=== PATIENT | female | born 1975 | race Caucasian/White ===

== ENCOUNTER 2017-05-14 06:56 | Day surgery (SDC) | payer MEDICAID ==
[~2017-05-14 06:56] MED LIST: Lidocaine 1%/Sod Bicarbonate in NS 8.4% 1 ML Syringe PRN; Sodium Chloride 0.9% 10 ML Syringe FLUSH PRN
[2017-05-14] MEDS: Lactated Ringers 1,000 ML IV SCH ×2 (07:17→14:04)
[2017-05-14] MEDS ORDERED: Bupivacaine 0.5% 30 ML SDV ONE (07:21)
[2017-05-14] MEDS ORDERED: HYDROmorphone 1 MG/ML Syringe ONE (07:28)
[2017-05-14] MEDS ORDERED: Ketamine 500 mg/10 ML MDV ONE (07:29)
[2017-05-14] MEDS ORDERED: Midazolam 1 MG/ML 2 ML SDV ONE (07:29)
[2017-05-14] MEDS ORDERED: Propofol 200 MG/20 ML SDV ONE (07:29)
[2017-05-14] MEDS ORDERED: fentaNYL 250 MCG/5 ML SDV ONE (07:29)
[2017-05-14] MEDS ORDERED: Rocuronium 50 MG/5 ML Vial ONE ×2 (07:31→11:05)
[2017-05-14] MEDS ORDERED: Dexamethasone 4 MG/ML SDV ONE (07:31)
[2017-05-14] MEDS ORDERED: Ondansetron 4 MG/2 ML SDV ONE (07:31)
[2017-05-14] MEDS ORDERED: Lidocaine 1% 4 ML ONE (07:31)
--- NOTE | 2017-05-14 07:35 | PCM.PREANE ---
Preanesthetic Assessment - Procedure Proposed Procedure: [facility] - Anesthesia/Transfusion/Family Hx Anesthesia History: Prior Anesthesia Without Reaction Family History of Anesthesia Reaction: No Transfusion History: Prior Transfusion Without Reaction Intubation History: Unknown - Review of Systems General: No Symptoms Pulmonary: Other (JOELLEN with cpap ) Cardiovascular: No Symptoms Gastrointestinal: No Symptoms Neurological: No Symptoms Other: Reports: None, Depression, Anxiety - Physical Assessment NPO Status Date: 05/13/17 NPO Status Time: 22:00 O2 Sat by Pulse Oximetry: 96 Respiratory Rate: 16 Vital Signs: Last Vital Signs Temp 36.3 C 05/14/17 07:05 Pulse 83 05/14/17 07:05 Resp 16 05/14/17 07:05 BP 129/84 05/14/17 07:05 Pulse Ox 96 05/14/17 07:05 Height: 1.73 m Weight: 109.316 kg ASA Class: 2 Mental Status: Alert & Oriented x3 Airway Class: Mallampati = 1 Dentition: Reports: Normal Dentition Thyro-Mental Finger Breadths: 3 Mouth Opening Finger Breadths: 3 ROM/Head Extension: Full Lungs: Clear to Auscultation, Normal Respiratory Effort Cardiovascular: Regular Rate, Regular Rhythm - Lab Values: Laboratory Last Values Urine HCG, Qual Negative (NEGATIVE) 05/14/17 07:01 - Allergies Allergies/Adverse Reactions: Allergies Allergy/AdvReac Type Severity Reaction Status Date / Time No Known Allergies Allergy Verified 05/13/17 16:33 - Blood Blood Available: No Product(s) Available: None - Anesthesia Plan Pre-Op Medication Ordered: None - Acknowledgements Anesthesia Type Planned: General Anesthesia Pt an Appropriate Candidate for the Planned Anesthesia: Yes Alternatives and Risks of Anesthesia Discussed w Pt/Guardian: Yes Pt/Guardian Understands and Agrees with Anesthesia Plan: Yes PreAnesthesia Questionnaire HEENT History: Reports: Impaired Vision Cardiovascular History: Reports: None Respiratory History: Reports: Sleep Apnea, SOB Gastrointestinal History: Reports: None Genitourinary History: Reports: None ELECTRICIAN SUBSTATION History: Reports: , Other (See Below) Other OB/BYN History: dysmenorrhea, heavy menses Musculoskeletal History: Reports: None Neurological History: Reports: None Psychiatric History: Reports: Anxiety Endocrine/Metabolic History: Reports: None Hematologic History: Reports: Other (See Below) Other Hematologic History: hemachromatosis Immunologic History: Reports: None Oncologic (Cancer) History: Reports: None Dermatologic History: Reports: None - Past Surgical History Head Surgeries/Procedures: Reports: None HEENT Surgical History: Reports: Oral Surgery Cardiovascular Surgical History: Reports: None Respiratory Surgical History: Reports: None GI Surgical History: Reports: None Female Surgical History: Reports: D&C Endocrine Surgical History: Reports: None Neurological Surgical History: Reports: None Musculoskeletal Surgical History: Reports: None Oncologic Surgical History: Reports: None Dermatological Surgical History: Reports: None - SUBSTANCE USE Smoking Status *Q: Former Smoker (19 years, quit 9 years ago) Second Hand Smoke Exposure: No Recreational Drug Use History: No - HOME MEDS Home Medications: Home Meds PARoxetine HCl [Paroxetine HCl] 30 mg PO DAILY 05/13/17 [History] - CURRENT (IN HOUSE) MEDS Current Meds: Current Medications Lactated Ringer's (Ringers, Lactated) 1,000 mls @ 125 mls/hr IV ASDIRECTED CIPRIANO Stop: 05/14/17 23:00 Last Admin: 05/14/17 07:17 Dose: 125 mls/hr Lidocaine/Sodium Bicarbonate (Buffered Lidocaine 1% In Ns 8.4%) 0.25 ml .XX ONETIME PRN PRN Reason: Prior to IV Start Stop: 05/14/17 18:00 Last Admin: 05/14/17 07:17 Dose: 0.25 ml Sodium Chloride (Saline Flush) 10 ml FLUSH ASDIRECTED PRN PRN Reason: Keep Vein Open Stop: 05/14/17 18:00 Discontinued Medications Dexamethasone (Dexamethasone) Confirm Administered Dose 4 mg .ROUTE .STK-MED ONE Stop: 05/14/17 07:32 Fentanyl (Sublimaze) Confirm Administered Dose 250 mcg .ROUTE .STK-MED ONE Stop: 05/14/17 07:30 Hydromorphone HCl (Dilaudid) Confirm Administered Dose 1 mg .ROUTE .STK-MED ONE Stop: 05/14/17 07:29 Lidocaine HCl (Xylocaine-Mpf 1%) Confirm Administered Dose 4 mls @ as directed .ROUTE .STK-MED ONE Stop: 05/14/17 07:32 Ketamine HCl (Ketalar) Confirm Administered Dose 500 mg .ROUTE .STK-MED ONE Stop: 05/14/17 07:30 Midazolam HCl (Versed 1 Mg/Ml) Confirm Administered Dose 2 mg .ROUTE .STK-MED ONE Stop: 05/14/17 07:30 Ondansetron HCl (Zofran) Confirm Administered Dose 4 mg .ROUTE .STK-MED ONE Stop: 05/14/17 07:32 Propofol (Diprivan 20 Ml) Confirm Administered Dose 200 mg .ROUTE .STK-MED ONE Stop: 05/14/17 07:30 Rocuronium [place] (Zemuron) Confirm Administered Dose 50 mg .ROUTE .STK-MED ONE Stop: 05/14/17 07:32
--- NOTE | 2017-05-14 07:38 | PCM.OPNOTE ---
- General Post-Op/Procedure Note Date of Surgery/Procedure: 05/14/17 Operative Procedure(s): Laparoscopic assisted vaginal hysterectomy. Bilateral salpingectomy Findings: Normal, but bulky appearance to the uterus. Fibroid noted to be filling left uterine cornua. Normal appearance of the ovaries and fallopian tubes. Pre Op Diagnosis: Abnormal uterine bleeding. 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 The patient was taken to the Operating Room where general anesthesia was induced without complication. The patient was placed in dorsal lithotomy with Padilla Stirrups and an exam under anesthesia revealed the findings detailed above. The patient was then prepped and draped in the usual sterile fashion. A sterile bivalve speculum was placed into the vagina and the anterior lip of the cervix was grasped with a single tooth tenaculum and the cervix was dilated to a #8 hegar dilator. A Alysa uterine manipulator was placed to allow uterine manipulation throughout the procedure. The speculum was removed from the vagina. A Bueno catheter was placed in sterile fashion. Attention was then turned to the patients abdomen where a Veress needle was carefully introduced into the peritoneal cavity while tenting the abdominal wall. Insufflation started but high opening pressure noted. Veress removed and 2 additional attempts at placement done with similar results. Veress needle then abandoned. A 5 mm skin incision was made in a vertical fashion in the umbilical fold and a 5 mm blunt trocar was inserted into the abdomen with direct visualization of the laparoscope through the clear view trocar lens. Once intraabdominal placement confirmed pneumoperitoenum was established with a pressure of 15 mm Hg. 5 mm skin incisions were made in both the left and right lower quadrants approximately 10 cm lateral and 3 cm inferior to the umbilicus. 5 mm blunt trocars were inserted into the abdomen under direct visualization with care to avoid the abdominal wall vasculature. A blunt probe and grasper were inserted through the accessory ports and a survey of the abdomen revealed the findings detailed above. The right fallopian tube was elevated with the blunt graspers at the fimbriated end. The Ligasure was used to grasp, elevate, cauterize and transect the mesosapingx from the fimbriated end toward the uterus to the level of the round ligament. The round ligament on the right was then elevated, cauterized, and transected with the Ligasure. Hemostasis was noted. Next, the vesicouterine peritoneum was elevated gently with a blunt grasper and the Ligasure and blunt dissection were used to dissect the vesicouterine peritoneum to make a bladder flap. Two more small bites along the right side of the uterus were made with the Ligasure to skeletonize the uterine artery. Hemostasis was noted. The exact same procedure was carried out on the left. Hemostasis as noted. The CO2 gas was turned off and the laparoscope was removed. Attention was then turned to the vaginal portion of the procedure. A short weighted speculum was placed in the vagina, and the cervix was grasped with two double-toothed tenaculums. The cervix was injected circumferentially with 10 mL of lidocaine with dilute epinephrine. The cervix was then circumferentially incised with a scalpel. A Raytec was used to bluntly dissect the cervix circumferentially until an avascular plane was obtained. The posterior cul-de- sac was entered sharply. The short weighted speculum was replaced by the long weighted speculum. The uterosacral ligaments were grasped on either side with the ligasure, cauterized, and transected. Hemostasis was assured. The bladder was dissected off the pubovesical cervical fascia anteriorly with a sponge and blunt dissection. The anteiror cul-de-sac was then entered sharply without difficulty. The cardinal ligaments were then serially clamped on both sides, cauterized, and transected. The uterine arteries were then clamped, cauterized, and transected. Hemostasis was then noted. The fundus and adnexa were confirmed to be free of any further peritoneal attachments and then were pulled out through the vagina. The posterior vaginal cuff was closed with a running, locked 0 vicryl suture. The vaginal cuff was closed with a 0-Vicryl in a running locked fashion. Hemostasis was noted. Attention was then again turned to the abdomen. All members of the surgical team changed gloves. The laparoscope was again inserted and the abdomen was again insufflated with CO2. The pedicles were again visualized. Irrigation of the pedicles was performed.Gab seal was placed along the vaginal cuff. Hemostasis was confirmed. The patient was taken out of Trendelenberg position. The accessory trocars were removed under direct visualization. The pneumoperitoneum was allowed to escape. The umbilical trocar was removed and lastly the camera was removed from the abdomen under direct visualization to confirm no herniation into the port site. All skin incisions were re- approximated with 4-0 Monocryl and sealed with Dermabond. Hemostasis was noted. A total of 10 cc of 0.25% Marcaine was injected into the subcutaneous tissues surrounding the skin incisions for local anesthesia. All sponge, lap, needle, and instrument counts were correct x 2. The patient tolerated the procedure well and there were no complications.
[2017-05-14] MEDS ORDERED: Scopolamine 1.5 MG Transdermal Patch TRDERM ONE (07:45)
[2017-05-14] MEDS ORDERED: ceFAZolin 1 GM Vial ONE (07:51)
[2017-05-14] MEDS: Bupivacaine 0.5%/EPINEPHrine 1:200,000 50 ML MDV ONE ×2 (08:20→09:35)
[2017-05-14] MEDS ORDERED: ePHEDrine/Normal Saline 25 MG/5 ML Syringe ONE (08:57)
[2017-05-14] MEDS ORDERED: Lactated Ringers 1,000 ML ONE ×2 (10:27)
[2017-05-14] MEDS ORDERED: Neostigmine Methylsulfate 10 MG/10 ML MDV ONE (11:09)
--- NOTE | 2017-05-14 11:33 | PCM.POSTAN ---
POST ANESTHESIA ASSESSMENT - MENTAL STATUS Mental Status: Alert, Oriented - VITAL SIGNS Pulse Rate: 93 SaO2: 97 Resp Rate: 17 Blood Pressure: 160/92 Temperature: 36.7 C - RESPIRATORY Respiratory Status: Respiratory Rate WNL, Airway Patent, O2 Saturation Stable, Supplemental Oxygen - CARDIOVASCULAR CV Status: Pulse Rate WNL, Blood Pressure Stable - GASTROINTESTINAL GI Status: No Symptoms - PAIN Pain Score: 0 - POST OP HYDRATION Hydration Status: Adequate & Stable
[2017-05-14] MEDS ORDERED: diphenhydrAMINE 50 MG/ML SDV IVPUSH PRN (11:34)
[2017-05-14] MEDS ORDERED: Promethazine 6.25 MG in Sodium Chloride 0.9% 50 ML IV PRN (11:34)
[2017-05-14] MEDS ORDERED: Meperidine PF 50 MG/ML Syringe IVPUSH PRN (11:34)
[2017-05-14] MEDS ORDERED: HYDROmorphone 0.5 MG/0.5 ML Syringe IVPUSH PRN (11:34)
[2017-05-14] MEDS ORDERED: fentaNYL 100 MCG/2 ML SDV IVPUSH PRN (11:34)
[2017-05-14] MEDS ORDERED: Ketorolac 30 MG/ML SDV IVPUSH ONE (12:46)
[2017-05-14] MEDS: Acetaminophen/oxyCODONE 325-5 MG Tab PO PRN ×2 (13:35→14:18)
--- NOTE | 2017-05-14 14:14 | PCM48HPAN ---
Post Anesthesia Note - EVALUATION WITHIN 48HRS OF ANESTHETIC Vital Signs in Normal Range: Yes Patient Participated in Evaluation: Yes Respiratory Function Stable: Yes Airway Patent: Yes Cardiovascular Function Stable: Yes Hydration Status Stable: Yes Pain Control Satisfactory: Yes Nausea and Vomiting Control Satisfactory: Yes Mental Status Recovered: Yes
[2017-05-14 17:42] VITALS: BP 117/62
== END 2017-05-14 16:55 | disposition home or self-care (01) ==
LOC: JD.SDS 06:56
PROVIDERS: ATTEND Obstetrics & Gynecology
DX: D26.1 Other benign neoplasm of corpus uteri (principal); D25.1 Intramural leiomyoma of uterus; N72 Inflammatory disease of cervix uteri; N88.8 Other specified noninflammatory disorders of cervix uteri; G47.33 Obstructive sleep apnea (adult) (pediatric); F41.9 Anxiety disorder, unspecified; F32.9 Major depressive disorder, single episode, unspecified; Z87.891 Personal history of nicotine dependence
CPT/HCPCS: 36415; 58552; 80048; 81025; 85025; 86850; 86900; 86901; A9270; J0690; J1100; J1170; J1885; J2250; J2405; J2710; J3010; J7050; J7120; 00840; J2704